=== PATIENT | female | born 1975 | race Caucasian/White ===

== ENCOUNTER 2016-08-08 11:11 | Emergency (ER) | payer OTHER ==
--- NOTE | 2016-08-08 12:39 | ED ORDER SUMMARY ---
..... Patient: MONI HINTON OrderSheet [facility] VisitID: [id number] [address] [place] [address] 41y, F Registration Date/Time: 08/08/2016 ORDER SHEET Weight: 75.7 kg (stated) Allergies: No Known Drug Allergy GENERAL ORDERS: MEDICATION ORDERS: Bactrim DS PO (Tablet 800-160 mg) 2 tabs (NOW) (12:21 08/08/2016 Freddy GOMEZ) (Ack 12:30 SRoberts R.N.) (12:33 SRoberts R.N.) IV FLUIDS: ORDER SHEET NOTES: [Electronically signed by Vera Acosta R.N. (14:10 08/08/2016)] [Electronically signed by Irais Arce MD (19:53 08/15/2016)] [Electronically locked/signed by Vera Acosta R.N. (14:10 08/08/2016)]
--- NOTE | 2016-08-08 12:39 | ED CLINICAL REPORT ---
Clinical Report - Physicians/Mid Levels [facility] [address] [place] [address] 08/08/2016 11:12 Patient: MONI HINTON Time Seen: 12:06. Arrived- By private vehicle. Historian- patient. HISTORY OF PRESENT ILLNESS Chief Complaint: VAGINAL PAIN. with cyst and spontaneous drainage. This started several days ago and still present (Pt states she has been hot-packing, and that the mass started draining spontaneously on the way to the ED.). The symptoms are described as moderate. Modifying factors- (pressure or movement of the area worsens; nothing relieves). No abdominal pain, pelvic pain, low back pain, flank pain or abnormal bleeding. No pain with urination, urinary frequency or urgency of urination. Sexually active. Similar symptoms previously: None. Recent medical care: Not recently seen/assessed. REVIEW OF SYSTEMS No nausea, vomiting, diarrhea, black stools or headache. No fever, chills, anorexia, eye discomfort or sore throat. No cough, difficulty breathing, chest pain, skin rash or enlarged lymph nodes. No joint pain. All systems otherwise negative, except as recorded above. PAST HISTORY Problems: Paresthesia. Sprain. Asthma. Tetanus Status. Immunizations. LNMP - Last Normal Menstrual Period. Additional Surgeries: . Fracture Repair. Medications: Oxycodone 10mg 4 times a day . Albuterol Sulfate Inhalation. Allergies: No Known Drug Allergy. SOCIAL HISTORY Smoker- current status unknown. No alcohol use or drug use. ADDITIONAL NOTES The nursing notes have been reviewed. PHYSICAL EXAM Vital Signs: 08/08/2016 11:23 BP: 139/70. HR: 66. RR: 20. O2 saturation: 97%. Temp: 98.3 F. Pain level now: 02/10. Have been reviewed. Appearance: Alert. Oriented X3. No acute distress. HEENT: Normal external inspection. CVS: Heart sounds normal. Respiratory: No respiratory distress. Breath sounds normal. Abdomen: Soft and nontender. : (Pt has a L labial, fluctuant mass, with a 5mm defect at the apex and serosanguinous drainage spontaneously. Overlying erythema is noted.). Skin: Skin warm and dry. Normal skin color. No rash. Normal skin turgor. Extremities: Extremities nontender. No lower extremity edema. Neuro: Oriented X 3. Mood/affect normal. No motor deficit. No sensory deficit. LABS, X-RAYS, AND EKG Pulse Oximetry: 08/08/2016 11:23 O2 saturation: 97%. (FIO2 - room air). Interpretation: normal. PROGRESS AND PROCEDURES Course of Care: I did offer to the pt to I&D the area, as there was still quite a bit of drainage that needed to occur, and the defect was small. 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 We have discussed indications for return. She was given a dose of Bactrim in the ED. Patient counseled in person regarding the patient's stable condition, diagnosis and need for follow-up. Concerns were addressed. Old medical records reviewed. Disposition: Discharged. Condition: stable. CLINICAL IMPRESSION Bartholin's abscess (cyst only, with overlying cellulitis and spontaneous drainage). INSTRUCTIONS Drink plenty of fluids. (You have opted to continue hot-packing at home, now that your cyst is draining. Please hot-pack all throughout the day and apply a mild amount of pressure to the area to encourage drainage. If your cyst continues to grow, you will need to be seen again to have your cyst lanced.). Warnings: GENERAL WARNINGS: Return or contact your physician immediately if your condition worsens or changes unexpectedly, if not improving as expected, or if other problems arise. Your Current Medications: CONTINUE TAKING THE FOLLOWING MEDICATIONS: Albuterol Sulfate Inhalation. Oxycodone 10mg 4 times a day *. Prescription Medications: Septra DS 800 mg / 160 mg: take 1 tablet orally every 12 hours for 7 days. No refill. Substitution is permissible. Percocet 5 mg/325 mg: take 1-2 tablets orally every 4 hours as needed for pain. Dispense fifteen (15). No refill. Substitution is permissible. Understanding of the discharge instructions verbalized by patient. Follow-up with: Haris Christine MD, Obstetrics/Gynecology, , [facility], [address] [place] [address] Follow up in five days if not better. (Electronically signed by Irais Arce MD 08/15/2016 19:53)
--- NOTE | 2016-08-08 12:39 | ED NURSING NOTES ---
Clinical Report - Nurses [facility] [address] [place] [address] 08/08/2016 11:12 Patient: MONI HINTON TRIAGE Triage time 11:23. Acuity: LEVEL 3. Chief Complaint: BOIL and TENDER AREA. Alert. No acute distress. JAX COMA SCORE: Jax Coma Scale: 15- eyes open spontaneously (4); best verbal response- oriented x 4 (5); best motor response- obeys commands (6). --11:37 Vera Acosta R.N. 11:23 08/08/16. BP: 139/70. HR: 66. RR: 20. O2 saturation: 97% on room air. Temp: 98.3 F. Pain level now: 02/10. --11:37 Vera Acosta R.N. Weight: 75.7 kg stated. Height/Length: 62 inches Per Patient. BMI: 30.6. --11:37 Vera Acosta R.N. Medications Albuterol Sulfate Inhalation. --11:33 Vera Acosta R.N. Oxycodone 10mg 4 times a day . --11:34 Vera Acosta R.N. Medication/allergy information source: the patient. --11:37 Vera Acosta R.N. Allergies No Known Drug Allergy. --11:33 Vera Acosta R.N. History Arrived by private vehicle. Historian: patient and family. Primary physician (maverick). Reported as located on the perineum. Onset. (1 weeks ago.). It is described as itchy, burning and painful. Treatment BUSINESS INSTRUCTOR: (hot packs). PAST MEDICAL HX: Immunizations: up-to-date. Last normal menstrual period was 4 weeks ago. SOCIAL HX: Light tobacco smoker (cigarette)- less than 1/2 a pack per day. No alcohol use or drug use. FALL RISK ASSESSMENT: Fall risk assessment completed. No fall risk identified. NUTRITIONAL RISK ASSESSMENT: The nutritional risk assessment revealed no deficiencies. FUNCTIONAL ASSESSMENT: Functional assessment: no impairments noted. LEARNING NEEDS ASSESSMENT: The learning needs assessment revealed no barriers. SKIN INTEGRITY ASSESSMENT: Skin integrity risk assessment completed. No skin integrity risk identified. --11:37 Vera Acosta R.N. PROBLEMS: Paresthesia. Sprain. Asthma. Cellulitis. --11:34 Vera Acosta R.N. ADDITIONAL SURGERIES: . Fracture Repair. --11:34 Vera Acosta R.N. Interventions ID band on patient. To room. --11:37 Vera Acosta R.N. PHYSICAL ASSESSMENT Ambulatory to room. Patient gowned. GENERAL / NEURO / PSYCH: Alert. Appears in pain and anxious. Oriented X 4. RESPIRATORY: Respirations not labored. CVS: Capillary refill less than 2 seconds. GI / : Abdomen nontender. SKIN: Skin is warm, dry and non-tender. Normal skin turgor. --11:38 Vera Acosta R.N. NURSING PROGRESS NOTES Patient gowned. Head of bed elevated. Two patient identifiers checked. Call light placed in reach. Side rails up x 1. Bed placed in lowest position. Brakes of bed on. Patient ready for evaluation. --11:39 Vera Acosta R.N. I & D: Preparation: (Cart at the door). --11:47 Vera Acosta R.N. 12:33 08/08/2016 Bactrim DS (Sulfamethoxazole-TMP DS) PO 1 tab given. Allergies verified and confirmed 5 rights. --12:33 Vera Acosta R.N. DISPOSITION / DISCHARGE 12:40. Condition at departure: improved. No learning barriers present. Discharge instructions provided and reviewed with the patient and spouse. Reviewed medication(s) side effects, precautions, dosing and course information. Prescription(s) given to the patient. Patient verbalized understanding. Written instructions provided in Belarusian. The patient was discharged home and accompanied by spouse. She left the Emergency Department ambulatory and via private vehicle. Spouse driving. Medication list reviewed and validated. --14:10 Vera Acosta R.N. 12:38 08/08/16. BP: 126/78. HR: 70. RR: 18. O2 saturation: 98% on room air. Temp: deferred. Pain level now: 09/10. 11:23 08/08/16. BP: 139/70. HR: 66. RR: 20. O2 saturation: 97% on room air. Temp: 98.3 F. Pain level now: 02/10. --14:10 Vera Acosta R.N. Locked/Released at 08/08/2016 14:10 by Vera Acosta R.N.
--- NOTE | 2016-08-08 12:39 | ED CLINICAL REPORT ---
Clinical Report - Physicians/Mid Levels [facility] [address] [place] [address] 08/08/2016 11:12 Patient: MONI HINTON Time Seen: 12:06. Arrived- By private vehicle. Historian- patient. HISTORY OF PRESENT ILLNESS Chief Complaint: VAGINAL PAIN. with cyst and spontaneous drainage. This started several days ago and still present (Pt states she has been hot-packing, and that the mass started draining spontaneously on the way to the ED.). The symptoms are described as moderate. Modifying factors- (pressure or movement of the area worsens; nothing relieves). No abdominal pain, pelvic pain, low back pain, flank pain or abnormal bleeding. No pain with urination, urinary frequency or urgency of urination. Sexually active. Similar symptoms previously: None. Recent medical care: Not recently seen/assessed. REVIEW OF SYSTEMS No nausea, vomiting, diarrhea, black stools or headache. No fever, chills, anorexia, eye discomfort or sore throat. No cough, difficulty breathing, chest pain, skin rash or enlarged lymph nodes. No joint pain. All systems otherwise negative, except as recorded above. PAST HISTORY Problems: Paresthesia. Sprain. Asthma. Tetanus Status. Immunizations. LNMP - Last Normal Menstrual Period. Additional Surgeries: . Fracture Repair. Medications: Oxycodone 10mg 4 times a day . Albuterol Sulfate Inhalation. Allergies: No Known Drug Allergy. SOCIAL HISTORY Smoker- current status unknown. No alcohol use or drug use. ADDITIONAL NOTES The nursing notes have been reviewed. PHYSICAL EXAM Vital Signs: 08/08/2016 11:23 BP: 139/70. HR: 66. RR: 20. O2 saturation: 97%. Temp: 98.3 F. Pain level now: 02/10. Have been reviewed. Appearance: Alert. Oriented X3. No acute distress. HEENT: Normal external inspection. CVS: Heart sounds normal. Respiratory: No respiratory distress. Breath sounds normal. Abdomen: Soft and nontender. : (Pt has a L labial, fluctuant mass, with a 5mm defect at the apex and serosanguinous drainage spontaneously. Overlying erythema is noted.). Skin: Skin warm and dry. Normal skin color. No rash. Normal skin turgor. Extremities: Extremities nontender. No lower extremity edema. Neuro: Oriented X 3. Mood/affect normal. No motor deficit. No sensory deficit. LABS, X-RAYS, AND EKG Pulse Oximetry: 08/08/2016 11:23 O2 saturation: 97%. (FIO2 - room air). Interpretation: normal. PROGRESS AND PROCEDURES Course of Care: I did offer to the pt to I&D the area, as there was still quite a bit of drainage that needed to occur, and the defect was small. 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 We have discussed indications for return. She was given a dose of Bactrim in the ED. Patient counseled in person regarding the patient's stable condition, diagnosis and need for follow-up. Concerns were addressed. Old medical records reviewed. Disposition: Discharged. Condition: stable. CLINICAL IMPRESSION Bartholin's abscess (cyst only, with overlying cellulitis and spontaneous drainage). INSTRUCTIONS Drink plenty of fluids. (You have opted to continue hot-packing at home, now that your cyst is draining. Please hot-pack all throughout the day and apply a mild amount of pressure to the area to encourage drainage. If your cyst continues to grow, you will need to be seen again to have your cyst lanced.). Warnings: GENERAL WARNINGS: Return or contact your physician immediately if your condition worsens or changes unexpectedly, if not improving as expected, or if other problems arise. Your Current Medications: CONTINUE TAKING THE FOLLOWING MEDICATIONS: Albuterol Sulfate Inhalation. Oxycodone 10mg 4 times a day *. Prescription Medications: Septra DS 800 mg / 160 mg: take 1 tablet orally every 12 hours for 7 days. No refill. Substitution is permissible. Percocet 5 mg/325 mg: take 1-2 tablets orally every 4 hours as needed for pain. Dispense fifteen (15). No refill. Substitution is permissible. Understanding of the discharge instructions verbalized by patient. Follow-up with: Haris Christine MD, Obstetrics/Gynecology, , [facility], [address] [place] [address] Follow up in five days if not better. (Electronically signed by Irais Arce MD 08/15/2016 19:53)
--- NOTE | 2016-08-08 12:39 | ED NURSING NOTES ---
Clinical Report - Nurses [facility] [address] [place] [address] 08/08/2016 11:12 Patient: MONI HINTON TRIAGE Triage time 11:23. Acuity: LEVEL 3. Chief Complaint: BOIL and TENDER AREA. Alert. No acute distress. JAX COMA SCORE: Jax Coma Scale: 15- eyes open spontaneously (4); best verbal response- oriented x 4 (5); best motor response- obeys commands (6). --11:37 Vera Acosta R.N. 11:23 08/08/16. BP: 139/70. HR: 66. RR: 20. O2 saturation: 97% on room air. Temp: 98.3 F. Pain level now: 02/10. --11:37 Vera Acosta R.N. Weight: 75.7 kg stated. Height/Length: 62 inches Per Patient. BMI: 30.6. --11:37 Vera Acosta R.N. Medications Albuterol Sulfate Inhalation. --11:33 Vera Acosta R.N. Oxycodone 10mg 4 times a day . --11:34 Vera Acosta R.N. Medication/allergy information source: the patient. --11:37 Vera Acosta R.N. Allergies No Known Drug Allergy. --11:33 Vera Acosta R.N. History Arrived by private vehicle. Historian: patient and family. Primary physician (maverick). Reported as located on the perineum. Onset. (1 weeks ago.). It is described as itchy, burning and painful. 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 PAST MEDICAL HX: Immunizations: up-to-date. Last normal menstrual period was 4 weeks ago. SOCIAL HX: Light tobacco smoker (cigarette)- less than 1/2 a pack per day. No alcohol use or drug use. FALL RISK ASSESSMENT: Fall risk assessment completed. No fall risk identified. NUTRITIONAL RISK ASSESSMENT: The nutritional risk assessment revealed no deficiencies. FUNCTIONAL ASSESSMENT: Functional assessment: no impairments noted. LEARNING NEEDS ASSESSMENT: The learning needs assessment revealed no barriers. SKIN INTEGRITY ASSESSMENT: Skin integrity risk assessment completed. No skin integrity risk identified. --11:37 Vera Acosta R.N. PROBLEMS: Paresthesia. Sprain. Asthma. Cellulitis. --11:34 Vera Acosta R.N. ADDITIONAL SURGERIES: . Fracture Repair. --11:34 Vera Acosta R.N. Interventions ID band on patient. To room. --11:37 Vera Acosta R.N. PHYSICAL ASSESSMENT Ambulatory to room. Patient gowned. GENERAL / NEURO / PSYCH: Alert. Appears in pain and anxious. Oriented X 4. RESPIRATORY: Respirations not labored. CVS: Capillary refill less than 2 seconds. GI / : Abdomen nontender. SKIN: Skin is warm, dry and non-tender. Normal skin turgor. --11:38 Vera Acosta R.N. NURSING PROGRESS NOTES Patient gowned. Head of bed elevated. Two patient identifiers checked. Call light placed in reach. Side rails up x 1. Bed placed in lowest position. Brakes of bed on. Patient ready for evaluation. --11:39 Vera Acosta R.N. I & D: Preparation: (Cart at the door). --11:47 Vera Acosta R.N. 12:33 08/08/2016 Bactrim DS (Sulfamethoxazole-TMP DS) PO 1 tab given. Allergies verified and confirmed 5 rights. --12:33 Vera Acosta R.N. DISPOSITION / DISCHARGE 12:40. Condition at departure: improved. No learning barriers present. Discharge instructions provided and reviewed with the patient and spouse. Reviewed medication(s) side effects, precautions, dosing and course information. Prescription(s) given to the patient. Patient verbalized understanding. Written instructions provided in Bulgarian. The patient was discharged home and accompanied by spouse. She left the Emergency Department ambulatory and via private vehicle. Spouse driving. Medication list reviewed and validated. --14:10 Vera Acosta R.N. 12:38 08/08/16. BP: 126/78. HR: 70. RR: 18. O2 saturation: 98% on room air. Temp: deferred. Pain level now: 09/10. 11:23 08/08/16. BP: 139/70. HR: 66. RR: 20. O2 saturation: 97% on room air. Temp: 98.3 F. Pain level now: 02/10. --14:10 Vera Acosta R.N. Locked/Released at 08/08/2016 14:10 by Vera Acosta R.N.
--- NOTE | 2016-08-08 12:39 | ED ORDER SUMMARY ---
..... Patient: MONI HINTON OrderSheet [facility] VisitID: [id number] [address] [place] [address] 41y, F Registration Date/Time: 08/08/2016 ORDER SHEET Weight: 75.7 kg (stated) Allergies: No Known Drug Allergy GENERAL ORDERS: MEDICATION ORDERS: Bactrim DS PO (Tablet 800-160 mg) 2 tabs (NOW) (12:21 08/08/2016 Freddy GOMEZ) (Ack 12:30 SRoberts R.N.) (12:33 SRoberts R.N.) IV FLUIDS: ORDER SHEET NOTES: [Electronically signed by Vera Acosta R.N. (14:10 08/08/2016)] [Electronically signed by Irais Arce MD (19:53 08/15/2016)] [Electronically locked/signed by Vera Acosta R.N. (14:10 08/08/2016)]
--- NOTE | 2016-08-15 19:53 | ED DISCHARGE INSTRUCTIONS ---
Patient: MONI HINTON General Instructions [facility] VisitID: [id number] [place] [address] 41y, F Registration Date/Time: 08/08/2016 Bartholin's abscess (cyst only, with overlying cellulitis and spontaneous drainage). INSTRUCTIONS Drink plenty of fluids. (You have opted to continue hot-packing at home, now that your cyst is draining. Please hot-pack all throughout the day and apply a mild amount of pressure to the area to encourage drainage. If your cyst continues to grow, you will need to be seen again to have your cyst lanced.). Warnings: GENERAL WARNINGS: Return or contact your physician immediately if your condition worsens or changes unexpectedly, if not improving as expected, or if other problems arise. Your Current Medications: CONTINUE TAKING THE FOLLOWING MEDICATIONS: Albuterol Sulfate Inhalation. Oxycodone 10mg 4 times a day *. Prescription Medications: Septra DS 800 mg / 160 mg: take 1 tablet orally every 12 hours for 7 days. No refill. Substitution is permissible. Percocet 5 mg/325 mg: take 1-2 tablets orally every 4 hours as needed for pain. Dispense fifteen (15). No refill. Substitution is permissible. Understanding of the discharge instructions verbalized by patient. Follow-up with: Haris Christine MD, Obstetrics/Gynecology, , [facility], [address] [place] [address] Follow up in five days if not better. ADDITIONAL INFORMATION BartholinS Cyst The Bartholins glands are very small glands found inside the labia (vaginal lips). The glands produce fluid to help keep the vagina moist. When the opening of a Bartholins gland becomes blocked, the gland will swell and form a cyst. A cyst feels like a firm lump within the labia, from " to 2" in size. It is usually not painful, unless it becomes infected. A small Bartholins cyst may need no treatment. Large cysts, and those that are infected (painful), need to be opened with an incision and drained. Home Care There are no restrictions needed for a small Bartholin's cyst. This should not interfere with sexual activity. Follow Up with your doctor or as advised by our staff. Get Prompt Medical Attention if any of the following occur: Increasing redness, pain or swelling of the labia Fever over 100.4F (38.0C) You have been given the following additional information: Bartholin's Cyst (No Infection) (Electronically signed by Irais Arce MD 08/15/2016 19:53)
--- NOTE | 2016-08-15 19:53 | ED MAR SUMMARY ---
..... Medication Administration Record [facility] [address] [place] [address] Patient: MONI HINTON Visit ID: [id number] 41y, F Weight: 75.7 kg Height/Length: 62 in BMI: 30.6 ALLERGIES: No Known Drug Allergy Given 12:33 08/08/2016 Vera Acosta R.N. Medication Administered: BACTRIM DS [PO] (SULFAMETHOXAZOLE-TMP DS), Dose: 1 tab PO. Medication Ordered: Bactrim DS PO (Tablet 800-160 mg) 2 tabs (NOW).
--- NOTE | 2016-08-15 19:53 | ED MED RECONCILIATION SUMMARY ---
Patient: MONI HINTON Medication Reconciliation Report [facility] VisitID: [id number] [address] [place] [address] 41y, F Registration Date/Time: 08/08/2016 Weight: 75.7 kg Height/Length: 62 in. BMI: 30.6 ALLERGIES: No Known Drug Allergy The patient's Home Medications are listed below: CONTINUE TAKING THE FOLLOWING MEDICATIONS: Albuterol Sulfate Inhalation Oxycodone 10mg 4 times a day The source(s) of the original Home Medication information: patient The following Medications were given to the patient in the Emergency Department: Bactrim DS [PO] PO 1 tab, administered: 08/08/2016 12:33:00 PM The following Medications were prescribed to the patient: Septra DS 800 mg / 160 mg: take 1 tablet orally every 12 hours for 7 days. No refill. Substitution is permissible. -- Irais Arce MD Percocet 5 mg/325 mg: take 1-2 tablets orally every 4 hours as needed for pain. Dispense fifteen (15). No refill. Substitution is permissible. -- Irais Arce MD
--- NOTE | 2016-08-15 19:53 | ED DISCHARGE INSTRUCTIONS ---
Patient: MONI HINTON General Instructions [facility] VisitID: [id number] [place] [address] 41y, F Registration Date/Time: 08/08/2016 Bartholin's abscess (cyst only, with overlying cellulitis and spontaneous drainage). INSTRUCTIONS Drink plenty of fluids. (You have opted to continue hot-packing at home, now that your cyst is draining. Please hot-pack all throughout the day and apply a mild amount of pressure to the area to encourage drainage. If your cyst continues to grow, you will need to be seen again to have your cyst lanced.). Warnings: GENERAL WARNINGS: Return or contact your physician immediately if your condition worsens or changes unexpectedly, if not improving as expected, or if other problems arise. Your Current Medications: CONTINUE TAKING THE FOLLOWING MEDICATIONS: Albuterol Sulfate Inhalation. Oxycodone 10mg 4 times a day *. Prescription Medications: Septra DS 800 mg / 160 mg: take 1 tablet orally every 12 hours for 7 days. No refill. Substitution is permissible. Percocet 5 mg/325 mg: take 1-2 tablets orally every 4 hours as needed for pain. Dispense fifteen (15). No refill. Substitution is permissible. Understanding of the discharge instructions verbalized by patient. Follow-up with: Haris Christine MD, Obstetrics/Gynecology, , [facility], [address] [place] [address] Follow up in five days if not better. ADDITIONAL INFORMATION BartholinS Cyst The Bartholins glands are very small glands found inside the labia (vaginal lips). The glands produce fluid to help keep the vagina moist. When the opening of a Bartholins gland becomes blocked, the gland will swell and form a cyst. A cyst feels like a firm lump within the labia, from " to 2" in size. It is usually not painful, unless it becomes infected. A small Bartholins cyst may need no treatment. Large cysts, and those that are infected (painful), need to be opened with an incision and drained. Home Care There are no restrictions needed for a small Bartholin's cyst. This should not interfere with sexual activity. Follow Up with your doctor or as advised by our staff. Get Prompt Medical Attention if any of the following occur: Increasing redness, pain or swelling of the labia Fever over 100.4F (38.0C) You have been given the following additional information: Bartholin's Cyst (No Infection) (Electronically signed by Irais Arce MD 08/15/2016 19:53)
--- NOTE | 2016-08-15 19:53 | ED MAR SUMMARY ---
..... Medication Administration Record [facility] [address] [place] [address] Patient: MONI HINTON Visit ID: [id number] 41y, F Weight: 75.7 kg Height/Length: 62 in BMI: 30.6 ALLERGIES: No Known Drug Allergy Given 12:33 08/08/2016 Vera Acosta R.N. Medication Administered: BACTRIM DS [PO] (SULFAMETHOXAZOLE-TMP DS), Dose: 1 tab PO. Medication Ordered: Bactrim DS PO (Tablet 800-160 mg) 2 tabs (NOW).
--- NOTE | 2016-08-15 19:53 | ED MED RECONCILIATION SUMMARY ---
Patient: MONI HINTON Medication Reconciliation Report [facility] VisitID: [id number] [address] [place] [address] 41y, F Registration Date/Time: 08/08/2016 Weight: 75.7 kg Height/Length: 62 in. BMI: 30.6 ALLERGIES: No Known Drug Allergy The patient's Home Medications are listed below: CONTINUE TAKING THE FOLLOWING MEDICATIONS: Albuterol Sulfate Inhalation Oxycodone 10mg 4 times a day The source(s) of the original Home Medication information: patient The following Medications were given to the patient in the Emergency Department: Bactrim DS [PO] PO 1 tab, administered: 08/08/2016 12:33:00 PM The following Medications were prescribed to the patient: Septra DS 800 mg / 160 mg: take 1 tablet orally every 12 hours for 7 days. No refill. Substitution is permissible. -- Irais Arce MD Percocet 5 mg/325 mg: take 1-2 tablets orally every 4 hours as needed for pain. Dispense fifteen (15). No refill. Substitution is permissible. -- Irais Arce MD
== END 2016-08-08 12:40 | disposition home or self-care (01) ==
LOC: ED SRH 11:11
DX: N75.0 Cyst of Bartholin's gland (principal)